=== PATIENT | male | born 1995 | race Caucasian/White ===

== ENCOUNTER → 2017-04-03 | Outpatient (CLI) | payer BC ==
--- NOTE | 2017-04-03 13:32 | XR ---
Chest x-ray with right RIBS HISTORY: Trauma and pain Frontal view of the chest and 4 views of the right ribs are submitted There is no displaced rib fracture evident. No pneumothorax or pleural effusion, no evident lung cont usion. Cardiac mediastinal silhouette is within normal limits. IMPRESSION: No acute abnormality, if occult fracture is suspected then bone scan may be of benefit.
== END | disposition home or self-care (01) ==
LOC: RADXRYALE 13:13
PROVIDERS: ATTEND Internal Medicine
DX: S20.211A Contusion of right front wall of thorax, initial encounter (principal)